=== PATIENT | male | born 1940 | race Caucasian/White ===

== ENCOUNTER 2023-08-31 13:35 | Outpatient (CLI) | payer MEDICARE | END 2023-08-31 13:36 | disposition home or self-care (01) | LOC: CSHRAD 13:35 | PROVIDERS: ATTEND Internal Medicine Hematology & Oncology | DX: Z01.818 Encounter for other preprocedural examination (principal); C91.10 Chronic lymphocytic leukemia of B-cell type not having achieved remission | CPT/HCPCS: 93005; 93010 ==